=== PATIENT | female | born 2005 | race Caucasian/White ===

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

== ENCOUNTER 2024-04-02 22:17 | Emergency (ER) | payer OTHER ==
[~2024-04-02] VITALS: Ht 167.6 cm; Wt 87.0 kg
[~2024-04-02 22:17] MED LIST: ATIVAN0.5 MG PO
[2024-04-02] MEDS ORDERED: DROSPIRENONE-E1 EACH PO (22:59)
[2024-04-02] MEDS ORDERED: KETOROLAC TROMETHAMINE 30 MG/ML VIAL IV ONE (23:45)
[2024-04-02] MEDS ORDERED: METOCLOPRAMIDE HCL 10 MG/2 ML SDV IV ONE (23:45)
[2024-04-02] MEDS ORDERED: diphenhydrAMINE HCL 50 MG/ML VIAL IV ONE (23:45)
[2024-04-03 01:00] VITALS: BP 120/64
== END 2024-04-03 01:00 | disposition home or self-care (01) ==
LOC: ED 22:17
DX: R51.9 Headache, unspecified (principal); Z79.899 Other long term (current) drug therapy
CPT/HCPCS: 70450; 96374; 96375; 99284-25; J1200; J1885; J2765